=== PATIENT | female | born 1975 | race Caucasian/White ===

== ENCOUNTER 2021-02-07 19:30 | Emergency (ER) | payer BC ==
[~2021-02-07] VITALS: Ht 170.2 cm; Wt 90.7 kg
[2021-02-07] MEDS ORDERED: CYMBALTA60 MG PO (19:53)
[2021-02-07] MEDS ORDERED: LAMOTRIGINE300 MG PO (19:54)
[2021-02-07] MEDS ORDERED: KLONOPIN1 MG PO (19:56)
[2021-02-07] MEDS ORDERED: ADDERALL XR 3030 MG PO (19:57)
[2021-02-07] MEDS ORDERED: ADDERALL 20 MG20 MG PO (20:03)
[2021-02-07 21:21] VITALS: BP 122/74
== END 2021-02-07 21:21 | disposition home or self-care (01) ==
LOC: M.ERS 19:30
DX: S61.211A Laceration without foreign body of left index finger without damage to nail, initial encounter (principal); Z88.2 Allergy status to sulfonamides; W26.0XXA Contact with knife, initial encounter; Y93.89 Activity, other specified; Y92.89 Other specified places as the place of occurrence of the external cause; Y99.8 Other external cause status